=== PATIENT | male | born 1960 | race Caucasian/White ===

== ENCOUNTER 2023-11-25 20:30 | Emergency (ER) | payer BC, SELFPAY ==
[2023-11-25] VITALS (8 sets, daily range): BP systolic 103–131; BP diastolic 48–79; PULSE 50–63; BMI 30.4
[2023-11-25 20:39] LABS: % Basophils 0.6 % (0-2); % Eosinophils 2.5 % (0-6); % Immature Granulocytes 0.4 % (0-0.5); % Lymphocytes 31.1 % (20.5-51.1); % Monocytes 6.9 % (1.7-9.3); % Neutrophils 58.5 % (42.2-75.2); Absolute Eosinophils 0.2 10^3/uL (0-0.7); Absolute Lymphocytes 2.3 10^3/uL (1.2-3.4); Absolute Monocytes 0.5 10^3/uL (0.1-0.6); Absolute Neutrophils 4.3 10^3/uL (1.4-6.5); Hematocrit 39.2 % (39.0-52.0); Hemoglobin 13.8 g/dL (13.0-18.0); Mean Corp Hgb Conc. 35.2 g/dL (33.0-37.0); Mean Corpuscular Hgb 31.3 pg (27.0-31.0); Mean Corpuscular Volume 88.9 fL (80.0-94.0); Mean Platelet Volume 10.1 fL (7.4-10.4); Nucleated Red Blood Cells % 0 % (-); Platelet Count 197 10^3/uL (130-400); Red Blood Cell Count 4.41 10^6/uL (4.70-6.10); White Blood Cell Count 7.3 10^3/uL (4.8-10.8)
[2023-11-25 20:56] LABS: ALT (SGPT) 21 U/L (0-50); AST (SGOT) 24 U/L (17-59); Albumin 3.9 g/dl (3.5-5.0); Alkaline Phosphatase 47 U/L (38-126); Blood Urea Nitrogen 13 mg/dl (9-20); Calcium 9.3 mg/dl (8.4-10.2); Carbon Dioxide 24 mmol/L (22-30); Chloride 99 mmol/L (98-107); Estimated Creatinine Clearance > 125 ml/min; Glucose 115 mg/dl (70-99); Potassium 3.8 mmol/L (3.5-5.1); Sodium 134 mmol/L (135-145); Total Bilirubin 0.5 mg/dl (0.2-1.3); Total Protein 6.1 g/dl (6.3-8.2); eGFR > 60.00
[2023-11-25 21:02] LABS: Troponin I < 0.012 ng/ml
--- NOTE | 2023-11-25 22:27 | ED.GENMED ---
History of Present Illness
General
Chief Complaint: Fainting/Passed Out
Time Seen by Provider: 11/25/23 20:52
Travel History
Have you had any contact with someone who has COVID-19?: No
Do you have any symptoms of coronavirus? Fever > 100 degrees, chills, cough, shortness of breath, sore throat, loss of taste or smell, muscle aches, or headache?: No
History of Present Illness
History of Present Illness:
63-year-old male with history of unspecified cardiomyopathy (follows with [facility] cardiology) presents to the emergency department for evaluation of a syncopal event. The patient states he had consumed several alcoholic beverages without
eating today, shortly after sitting down at a restaurant he began to feel lightheaded and nauseated. His close friend witnessed the syncopal event, states he was unconscious for 1 to 2 minutes, when he woke up he vomited before gradually improving.
Patient states he has had at least half a dozen syncopal events over the past 10 to 15 years that been previously evaluated by his cardio clinician with Holter monitors, echocardiograms, and stress test. He states he currently feels fine and has no
complaints.
Past History
Past History
ED Past Medical History: Other (Cardiomyopathy) and Other (Acute influenza a August 2019)
ED Past Surgical History: Orthopedic (Right shoulder replacement)
Social History
Tobacco: Non-smoker
Alcohol: Occasional
Drug: Marijuana (rare recreational marijuana use)
Personal:
Living: with family
Employment: Employed
Family History
Family History: CAD (Mother with history of cardiomyopathy)
Review of Systems
Review of Systems
Allergies reviewed?: Yes
All Other Systems: ROS reviewed and negative except as documented in HPI and ROS
Phy Exam
Physical Exam
Physical Exam:
GEN: Well appearing, NAD, WDWN
HEENT: Oral mucosa moist, no scleral icterus, no nasal congestion
Cardiac: Mildly bradycardic rate regular rhythm, no murmurs
Lung: No respiratory distress, no tachypnea, lungs clear to auscultation bilaterally
MSK: No gross deformity or injuries
Skin: Good color, no pallor or jaundice, no rashes
Neuro: AO x3; CN II-XII grossly intact. BUE strength 5/5 in all best, sensation intact and symmetric. BLE strength 5/5 in all best, sensation intact and symmetric
Psych: Calm, cooperative
Course
Orders/Labs/Results
Orders:
Orders
11/25/23 20:34
Electrocardiogram (*1) Urgent
Reason for Study: Syncope
EKG- Treatment ONCE
11/25/23 20:35
Complete Blood Count/With Diff Urgent
Comprehensive Metabolic Panel Urgent
Troponin I Urgent
Abnormal Lab Results
11/25/23
20:35
RBC 4.41 L 10^6/uL
(4.70-6.10)
MCH 31.3 H pg
(27.0-31.0)
Sodium 134 L mmol/L
(135-145)
Glucose 115 H mg/dl
(70-99)
Total Protein 6.1 L g/dl
(6.3-8.2)
11/25/23 20:35
11/25/23 20:35
Vital Signs
Initial and Last Documented VS:
Initial Vital Signs
BP
118/70
11/25/23 20:31
Last Documented Vital Signs
Temp Pulse BP Pulse Ox
97.6 F 59 131/48 99
11/25/23 20:36 11/25/23 22:15 11/25/23 22:06 11/25/23 22:15
MDM/Problems Addressed
MDM/Problems Addressed:
63-year-old male presents after a witnessed syncopal event. Given that the patient has undergone extensive cardiovascular workup in the past (I do not have access to these records, the sister stated history from the patient) do not feel it is
prudent to admit him to the hospital for telemetry monitoring and further cardiac workup. Certainly he is advised to follow-up with his cardio clinician to determine if he needs any further evaluations, the patient states to me his last echocardiogram
showed an ejection fraction of 40% or greater which is reassuring against a ventricular dysrhythmia. Patient is comfortable discharge to home and agrees to follow-up with cardiology as an outpatient
*Critical Care Note
Total Time (30-74mins, 75-104mins- exclusive of procedures): Not Applicable
ED Attending Note
-
Portions of this chart may have been created with voice recognition software.� Occasional wrong word or��sound alike� substitutions may have occurred due to the inherent limitations of voice recognition software.
Discharge Plan
Departure
Patient Disposition: Home (Routine Discharge)
Date of Disposition: 11/25/23
Time of Disposition: 22:27
Patient with high blood pressure during this ER visit?: No
Discharge Problem:
Syncope
Instructions: Syncope (Fainting) (DC)
Prescriptions:
No Action
metoprolol succinate [Toprol XL] 100 MG tablet extended release 24 hr
100 mg PO DAILY
digoxin 0.125 MG tablet
0.125 mg PO DAILY
valsartan [Diovan] 160 MG tablet
160 mg PO DAILY
Activity Restrictions/Additional Instructions:
Follow up with your cardio clinician for further discussion of your fainting episode
Any further fainting episodes would warrant a return visit to the ER for hospital admission
Interventions
Interventions:
*Risk Screen - Suicide Last Done: 11/25/23 20:36
*General Assessment Last Done: 11/25/23 20:36
*Neglect/Abuse Screening Last Done: 11/25/23 20:36
ED- Fall Risk Assessment Last Done: 11/25/23 20:42
*ED COVID-19 Vaccine History Last Done: 11/25/23 20:42
*Nursing Disposition Last Done: 11/25/23 22:44
ED- Cardiac Assessment Last Done: 11/25/23 20:42
ED- Neurological Assessment Last Done: 11/25/23 20:42
Discharge Date and Time
Discharge Date/Time: 11/25/23 22:44
Print Language: ICELANDIC
== END 2023-11-25 22:44 | disposition home or self-care (01) ==
LOC: EMR 20:30
PROVIDERS: EMERGENCY PHYSICIAN Emergency Medicine; FAMILY PHYSICIAN Family Medicine
DX: R55 Syncope and collapse (principal); I42.9 Cardiomyopathy, unspecified; F12.90 Cannabis use, unspecified, uncomplicated; Z82.49 Family history of ischemic heart disease and other diseases of the circulatory system; Z96.611 Presence of right artificial shoulder joint
CPT/HCPCS: 99283; 80053; 84484; 85025; 93005